=== PATIENT | female | born 1970 | race Caucasian/White ===

== ENCOUNTER 2016-06-28 18:02 | Emergency (ER) | payer OTHER ==
[2016-06-28 18:56] LABS: BASOPHILS 0.6 % (0-2); EOSINOPHILS 1.3 % (0-7); HEMATOCRIT 44.3 % (36.0-48.0); HEMOGLOBIN 15.1 g/dL (12-16); IMMATURE GRANULOCYTES 0.4 % (0-5); LYMPHOCYTES 33.1 % (15-50); MCH 31.7 pg (26.0-34.0); MCHC 34.1 g/dL (31.0-37.0); MCV 92.9 fL (80.0-100.0); MEAN PLATELET VOLUME 8.7 fL (7.4-10.4); NEUTROPHILS 60.6 % (40-80); PLATELET COUNT 287 10x3/uL (130-400); RBC 4.77 10x6/uL (4.00-5.40); WBC 8.2 10x3/uL (4.8-10.8)
[2016-06-28 19:05] LABS: CALC OSMOLALITY 277 mosm/kg (275-300); CALCIUM 9.6 mg/dL (8.5-10.1); CARBON DIOXIDE 27.3 mmol/L (21.0-32.0); CHLORIDE - SERUM 104 mmol/L (98-107); CREATININE - SERUM 0.7 mg/dL (0.6-1.3); GLUCOSE 100 mg/dL (74-106); POTASSIUM - SERUM 3.8 mmol/L (3.5-5.1); SODIUM 140 mmol/L (136-145); UREA NITROGEN 11 mg/dL (7-18); eGFR NON AFRICAN AMERICAN > 90 mL/min (90-120)
[2016-06-28 19:07] LABS: APPEARANCE CLEAR (CLEAR); BILIRUBIN NEGATIVE (NEGATIVE); COLOR YELLOW (YELLOW); GLUCOSE NEGATIVE (NEGATIVE); KETONE NEGATIVE (NEGATIVE); LEUKOCYTE ESTERASE NEGATIVE (NEGATIVE); NITRITE NEGATIVE (NEGATIVE); PROTEIN NEGATIVE (NEGATIVE); SPECIFIC GRAVITY 1.005 (1.005-1.020); UROBILINOGEN NORMAL (NORMAL)
== END 2016-06-28 22:09 | disposition home or self-care (01) ==
LOC: D.ER 18:02
PROVIDERS: Nurse Practitioner Acute Care
DX: R42 Dizziness and giddiness (principal); R55 Syncope and collapse; F17.200 Nicotine dependence, unspecified, uncomplicated; M79.7 Fibromyalgia

== ENCOUNTER → 2016-07-16 20:10 | Outpatient (CLI) | payer OTHER ==
[2016-07-21 03:09] LABS: RMSF IGM 0.48 index (0.00-0.89)
== END | disposition home or self-care (01) ==
LOC: D.LABREF 20:10
PROVIDERS: Family Medicine
DX: S30.861A Insect bite (nonvenomous) of abdominal wall, initial encounter (principal); F32.9 Major depressive disorder, single episode, unspecified

== ENCOUNTER 2018-08-12 09:00 | Outpatient (CLI) | payer BC, OTHER | END 2018-08-12 10:00 | disposition home or self-care (01) | LOC: D.MAMMO 09:00 | PROVIDERS: ATTEND Family Medicine | DX: Z12.31 Encounter for screening mammogram for malignant neoplasm of breast (principal) ==

== ENCOUNTER 2018-11-19 16:37 | Emergency (ER) | payer BC ==
[~2018-11-19] VITALS: Ht 177.8 cm; Wt 84.1 kg
[2018-11-19 16:53] VITALS: Ht 177.8 cm; Wt 84.1 kg
[2018-11-19] MEDS ORDERED: LEXAPRO10 MG PO (16:54)
[2018-11-19] MEDS ORDERED: CARAFATE1 G PO (17:58)
[2018-11-19] MEDS ORDERED: VOLTAREN75 MG PO (17:58)
[2018-11-19] MEDS ORDERED: PROTONIX40 MG PO (17:58)
[2018-11-19 18:13] VITALS: BP 132/74
== END 2018-11-19 18:14 | disposition home or self-care (01) ==
LOC: D.ER 16:37
DX: S89.92XA Unspecified injury of left lower leg, initial encounter (principal); V43.52XA Car driver injured in collision with other type car in traffic accident, initial encounter; F32.9 Major depressive disorder, single episode, unspecified; F17.210 Nicotine dependence, cigarettes, uncomplicated